=== PATIENT | male | born 1985 | race Caucasian/White ===

== ENCOUNTER 2016-12-10 09:44 | Emergency (ER) | payer BC, OTHER ==
[2016-12-10] MEDS ORDERED: Bacitracin Oint 1 GM U/D Packet TOP ONE (09:49)
[2016-12-10] MEDS ORDERED: Ketorolac 60 MG/2 ML SDV IM ONE (09:49)
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
--- NOTE | 2016-12-10 10:49 | CR ---
EXAMINATION: Left clavicle HISTORY: Pain COMPARISON: None TECHNIQUE: 2 views FINDINGS/IMPRESSION: There is a mildly displaced mid left clavicle fracture identified without signi ficant fragment overlap. The remaining osseous structures and joint spaces appear intact. Bone re examiner alization is normal.
[2016-12-10 11:23] VITALS: BP 141/95
== END 2016-12-10 11:26 | disposition home or self-care (01) ==
LOC: MW.ED 09:44
DX: S52.514A Nondisplaced fracture of right radial styloid process, initial encounter for closed fracture (principal); S42.022A Displaced fracture of shaft of left clavicle, initial encounter for closed fracture; S20.211A Contusion of right front wall of thorax, initial encounter; V29.9XXA Motorcycle rider (driver) (passenger) injured in unspecified traffic accident, initial encounter; Y92.410 Unspecified street and highway as the place of occurrence of the external cause
CPT/HCPCS: 71101; 73000; 73110; 96372; 99284; J1885; J2360

== ENCOUNTER → 2016-12-18 | Outpatient (CLI) | payer OTHER ==
--- NOTE | 2016-12-19 15:54 | CR ---
EXAM DATE: 12/18/16 PATIENT'S AGE: 31 Patient: SARA ELDRIDGE Facility: [place], [place] Site . Site : 1985 Study: XRay Extremity Right [id number]/[id number]/2017 1:03:56 PM Ordering Physician: Jennifer Wilcox Final Report: HISTORY: Pain, follow up. Findings: Three views of the right wrist are compared with 10 December 2016. There is an intra-articular oblique nondisplaced fracture seen through the radial styloid in stable alignment. No definite callus formation seen. The ulna is intact. There is normal alignment of carpals. Impression: Nondisplaced intra-articular oblique fracture seen through the radial styloid without callus Dictated by Shu Arita MD @ Dec 18 2016 11:41PM (Electronic Signature) Report Signed by Proxy. JENNIFER
--- NOTE | 2016-12-19 15:55 | CR ---
EXAM DATE: 12/18/16 PATIENT'S AGE: 31 Patient: SARA ELDRIDGE Facility: [place], [place] Site . Site : 1985 Study: XRay Extremity Left [id number]/27/2017 1:05:25 PM Ordering Physician: Jennifer Wilcox Final Report: HISTORY: Pain, follow up. Findings: Two views of the left clavicle are compared 10 December 2016. There is a fracture seen through the mid left clavicle. There is 1.3 cm of inferior displacement of the lateral fracture fragment, marginally increased from prior exam. No callus. The AC joint and glenohumeral joint are maintained. Impression: Mid left clavicular fracture with 1.3 cm of inferior displacement of the lateral fracture fragment marginally increased from prior exam. Dictated by Shu Arita MD @ Dec 18 2016 11:43PM (Electronic Signature) Report Signed by Proxy. JENNIFER
== END ==
LOC: MW.CHORTHO 07:44
PROVIDERS: ATTEND Physician Assistant
DX: S42.002A Fracture of unspecified part of left clavicle, initial encounter for closed fracture (principal); S42.012A Anterior displaced fracture of sternal end of left clavicle, initial encounter for closed fracture; S52.514A Nondisplaced fracture of right radial styloid process, initial encounter for closed fracture
CPT/HCPCS: 73000-26-LT; 73000-LT; 73110-26-RT; 73110-RT

== ENCOUNTER 2023-06-16 17:43 | Emergency (ER) | payer BC ==
[2023-06-16] MEDS ORDERED: Acetaminophen 325 MG Tab PO ONE (21:05)
[2023-06-16] MEDS ORDERED: Ondansetron 4 MG Tab.DIS PO ONE (22:06)
[2023-06-16] MEDS ORDERED: oxyCODONE 5 MG Tab PO ONE (22:06)
[2023-06-17 02:06] VITALS: BP 140/88; PULSE 76
== END 2023-06-16 23:05 | disposition home or self-care (01) ==
LOC: MW.ED 17:43
DX: S92.002A Unspecified fracture of left calcaneus, initial encounter for closed fracture (principal); W11.XXXA Fall on and from ladder, initial encounter
CPT/HCPCS: 73610; 99283; A9270